=== PATIENT | male | born 1965 ===

== ENCOUNTER 2019-08-11 08:42 | Day surgery (SDC) | payer OTHER ==
[2019-08-11] VITALS (11 sets, daily range): BP systolic 117–167; BP diastolic 77–112
[~2019-08-11] VITALS: Ht 165.1 cm; Wt 104.3 kg
--- NOTE | 2019-08-11 08:58 | Short Stay Surgery H&P ---
History of Present Illness History of Present Illness Chief Complaint Epigastric pains and GERds HPI Sonny Flores is a 54 year old male who was admitted on for Abdominal Pain,Gerds Patient History PAST MEDICAL HISTORY: (1) Hypertension Review of Systems Cardiovascular: Reports: no symptoms Respiratory: Reports: no symptoms Skeletal: Reports: trauma Gastrointestinal: Reports: gastro esophageal reflux disease Genitourinary: Reports: no symptoms Neurologic: Reports: no symptoms Endocrine: Reports: no symptoms Hematologic: Reports: no symptoms Physical Exam Skin: normal HENT: normal Heart: normal Lungs: normal Abdomen: abnormal Extremities: normal Genitourinary: normal Plan Plan of Care Upper GI. endoscopy and biopy. Preop Interventions None. Summary of Findings See the reports Attestation Are the patient's medical conditions optimized for surgery? Attestation Response: yes Marquez Jarrett MD Aug 11, 2019 08:58
--- NOTE | 2019-08-11 08:59 | Pre-Procedure Note/Attestation ---
Pre-Procedure Note/Attestation Complete Prior to Procedure Planned Procedure: left Procedure Narrative: Examination of the upper GI. tract with obtaining biopsy. Indications for Procedure Pre-Operative Diagnosis: R/O Peptic Ulcer/gastritis/esophagitis Attestation I attest that I discussed the nature of the procedure; its benefits; risks and complications; and alternatives (and the risks and benefits of such alternatives ), prior to the procedure, with the patient (or the patient's legal credit and collections representative). I attest that, if there was a reasonable possibility of needing a blood transfusion, the patient (or the patient's legal credit and collections representative) was given the [place] Department [employer] standardized written summary, pursuant to the Domenico Donna Blood Safety Act ([place] Health and Safety Code # 1645, as amended). I attest that I re-evaluated the patient just prior to the surgery and that there has been no change in the patient's H&P, except as documented below: aMrquez Jarrett MD Aug 11, 2019 08:59
--- NOTE | 2019-08-11 09:01 | Discharge Instructions ---
Discharge Instructions Discharge Instructions Follow up with: See the doctor in office after 2 weeks. For Congestive Heart Failure Reminder Report to your physician any weight gain of 5 pounds or more in one week. Marquez Jarrett MD Aug 11, 2019 09:01
[2019-08-11] MEDS ORDERED: Lidocaine 2% Visc 15ml soln ORAL ONE (09:15)
[2019-08-11] MEDS ORDERED: Hurricaine 20% Spray ORO ONE (09:15)
[2019-08-11] MEDS ORDERED: OMEPRAZOLE40 M1 ORAL (09:28)
[2019-08-11] MEDS ORDERED: Propofol 200mg/20ml IV ONE (10:00)
[2019-08-11] MEDS ORDERED: Lidocaine 1% MPF 10mg/ml 5ml ONE (10:00)
--- NOTE | 2019-08-11 10:05 | Endoscopy Procedure Note ---
Endoscopy Procedure Note General Indication for Procedure: Abdominal pain/epigastric pain and GERDs Procedures Performed: EGD - Mild gastritis; biopsy obtained from antrum. Specimen: yes Pt Tolerated Procedure Well: Yes Estimated Blood Loss: none Anesthesia Anesthesiologist: Dr. Kisha Dolan Anesthesia: moderate sedation Medications Medication Given: see anesthesia record Inserted Devices Implant(s) used?: No Quality Quality of Bowel Preparation: Excellent GI Core Measures 50 yrs or older w/o bx or poly: Not Applicable 10yrs. F/U recommended: Not Applicable If not recommended, why?: Med reason:<3 yrs.: System Reason:<3 yrs.: Last colonoscopy >= to 3yrs: Marquez Doan MD Aug 11, 2019 10:05
--- NOTE | 2019-08-11 10:11 | Anethesia Preoperative Eval ---
Anesthesia Pre-op PMH/ROS General Date of Evaluation: Aug 11, 2019 Time of Evaluation: 09:40 Anesthesiologist: Kisha Dolan CRNA ASA Score: ASA 3 Mallampati Score Class I : Soft palate, uvula, fauces, pillars visible Class II: Soft palate, uvula, fauces visible Class III: Soft palate, base of uvula visible Class IV: Only hard plate visible Mallampati Classification: Class III Surgeon: Kolby Diagnosis: Gastritis Surgical Procedure: EGD with biopsies Anesthesia History: none Social History: smoking Family History: no anesthesia problems Allergies: Coded Allergies: No Known Allergies (Unverified , 08/11/19) Medications: see eMAR Patient NPO?: Yes NPO Date: Aug 11, 2019 NPO Time: 00:00 Past Medical History Cardiovascular: Reports: HTN - not on meds, poorly controlled, denies CP, SOB, [place] Pulmonary: Denies: asthma, COPD, ROMERO, other Gastrointestinal/Genitourinary: Reports: GERD; Denies: CRI, ESRD, other Neurologic/Psychiatric: Denies: dementia, CVA, depression/anxiety, TIA, other Endocrine: Denies: DM, hypothyroidism, steroids, other HEENT: Denies: cataract (L), cataract (R), glaucoma, [place]A (L), [place]A (R), other Hematology/Immune: Denies: anemia, DVT, bleeding disorder, other Musculoskeletal/Integumentary: Denies: OA, RA, DJD, DDD, edema, other Other: obesity - morbid obesity BMI 38 PMH Narrative: as noted above PSxH Narrative: see H & P Anesthesia Pre-op Phys. Exam Physician Exam Last Vital Signs Date Time Temp Pulse Resp B/P (MAP) Pulse Ox O2 Delivery O2 Flow Rate FiO2 08/11/19 09:35 Room Air 08/11/19 09:32 98.1 17 167/112 97 Constitutional: NAD Neurologic: other - alert & oriented Cardiovascular: RRR Respiratory: CTA Gastrointestinal: S/NT/ND Airway Exam Mallampati Score: Class III MO: full Neck: short thick neck, large tongue TMD: > 3 FB Teeth: intact Dentures: no upper, no lower Anesthesia Pre-op A/P Risk Assessment & Plan Assessment: ASA 3, ok to proceed Plan: MAC Status Change Before Surgery: No Pre-Antibiotics Given Within 1 Hr of Incision: No Koempel,Kisha [employer]PUTY [employer] INSPECTOR Aug 11, 2019 10:10
--- NOTE | 2019-08-11 10:22 | Immediate Post-Op Evaluation ---
Immediate Post-Op Evalulation Immediate Post-Op Evalulation Procedure: EGD with biopsies Date of Evaluation: Aug 11, 2019 Time of Evaluation: 10:20 IV Fluids: 0.9 NS 100 ml Blood Pressure Systolic: 146 Blood Pressure Diastolic: 110 Pulse Rate: 67 Respiratory Rate: 21 O2 Sat by Pulse Oximetry: 100 Temperature (Fahrenheit): 97.3 Pain Score (1-10): 0 Nausea: No Vomiting: No Complications none Patient Status: awake, patent Hydration Status: adequate Given Within 1 Hr of Incision: Kisha Galaviz CRNA Aug 11, 2019 10:22
--- NOTE | 2019-08-11 11:41 | 48 Hour Post Anesthesia Eval ---
Post Anesthesia Evaluation Procedure: EGD with biopsies Date of Evaluation: Aug 11, 2019 Time of Evaluation: 11:39 Blood Pressure Systolic: 137 0: 86 Pulse Rate: 69 Respiratory Rate: 17 Temperature (Fahrenheit): 97.4 O2 Sat by Pulse Oximetry: 96 Airway: patent Nausea: No Vomiting: No Pain Intensity: 0 Hydration Status: adequate Cardiopulmonary Status: stable Mental Status/LOC: patient returned to baseline Follow-up Care/Observations: per GI Post-Anesthesia Complications: none Follow-up care needed: N/A Kisha Dolan CRNA Aug 11, 2019 11:40
--- NOTE | 2019-08-11 12:15 | Pre-op HX & Phy Repo 2 SIG ---
DATE OF ADMISSION: 08/11/2019 HISTORY OF PRESENT ILLNESS: The applicant is a 54-year-old saa-Amilugy-spzfrthd gentleman, who is being seen prior to undergoing the procedure of upper GI endoscopy for which he has been scheduled to receive for evaluation of his gastrointestinal conditions that he has suffered subsequent to his work injury. The patient basically has been experiencing pain over the upper part of the abdomen, radiating towards his chest as he mentions and this has been associated with increasing gastroesophageal reflux consistent with as well. The intensity of pain is also moderate to sometime very severe as he mentions. He reports that he has been treated with nonsteroidal anti-inflammatory agents subsequent to his work injury and these symptoms have gradually occurred as he also does complain now that he has occasional nausea and some difficulty swallowing at times. He has been taking Tums for the control of his conditions. However, he has never been transcribed any medications such as PPIs or etc. The applicant also reports that he has occasional symptoms of gastroesophageal reflux and form of regurgitations that is quite cumbersome at times during the night. He denies having had any history of gastrointestinal conditions before or any evidence of gastritis secondary to Helicobacter in the past. 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 The nonsteroidal anti-inflammatory agents that he took for the prominence of injuries over his knees and the back area was mostly ibuprofen. Currently, he denies having any vomiting blood or passing black stools per rectum. There is no diarrhea or constipation currently. PAST MEDICAL HISTORY: He has had history of hypertension, otherwise he denies any other conditions such as pneumonia, pancreatitis, hepatitis, etc. PAST SURGICAL HISTORY: Nonsignificant. FAMILY HISTORY: The patient has two normal children. MEDICATIONS: None. HABITS: The applicant denies drinking alcohol or smoking cigarettes. REVIEW OF SYSTEMS: Basically history of present illness. He denies having any headaches or dizziness or visual problems. No history of urological conditions. He only complains of pain over his joints that he has suffered subsequent to his work injury. PHYSICAL EXAMINATION: GENERAL: At this time reveals alert, oriented, very pleasant gentleman, who does not speak Taiwanese, but answers the questions through the emc storage architect. VITAL SIGNS: Blood pressure 167/104, respiratory rate is 20 per minute, pulse rate is 54 per minute, oxygen saturation 97%, temperature 98.1. HEENT: Normocephalic. Pupils equal in size and reactive to light and accommodation. No visible jaundice. Buccal cavity, tongue midline, well hydrated. No ulcers. NECK: Supple. No JVD, thyromegaly, or adenopathy. CHEST: Clear to auscultation and percussion. No rales or rhonchi. HEART: S1, S2 normal. Regular rhythm. No gallops or murmur. ABDOMEN: Quite obese, but there are areas of tenderness over the upper part of the abdomen, but no hepatosplenomegaly. No palpable mass noted. Bowel sounds are present. EXTREMITIES: Within normal limits. No pretibial edema, cyanosis, or clubbing. NEUROLOGICAL: Grossly normal. PRELIMINARY PREOPERATIVE IMPRESSION: 1. Abdominal pain, epigastric pain of uncertain etiology, rule out gastroesophageal acid reflux, subsequent to the side effects of non NSAID medication used for the treatment of bodily injury. 2. Dysphagia possibly secondary to gastroesophageal reflux, rule out NSAID-induced esophagitis or esophageal spasm. 3. History of hypertension. 4. Obesity. 5. History of bodily injury work related. RECOMMENDATIONS: The applicant at this time seems to be quite stable to undergo the procedure of upper GI endoscopy for which he has been scheduled. He understands the risks and benefits and will sign the consent. Said Anthony Jarrett DR: MARTA JOB#: [id number] CC:
--- NOTE | 2019-08-11 13:01 | Operative Note - Dictated ---
DATE OF OPERATION: 08/11/2019 SURGEON: Marquez Jarrett M.D. PROCEDURE: Esophagogastroduodenoscopy with biopsy. PREOPERATIVE DIAGNOSIS: Abdominal pain, epigastric pain, rule out peptic ulcer disease induced by NSAID medication. POSTOPERATIVE DIAGNOSIS: Mild generalized gastritis, biopsy was taken from antral area. MEDICATION USED: Redd Dolan CRNA. INSTRUMENT: GIF Olympus upper GI video endoscope. DESCRIPTION OF PROCEDURE: The patient after arriving an endoscopy unit, was told about risks and benefits of the procedure, which he accepted and signed informed consent. He was then put on the left lateral decubitus position. After adequate IV sedation, the scope was gently passed through the cricopharyngeal area, was lodged into the upper esophagus and gradually advanced towards gastroesophageal junction. The entire length of the esophagus looked normal without any evidence of pathology. The scope was then passed into the GE junction, which was normal and subsequently scope was introduced into the stomach. Gastric cavity was distended with insufflation of air. At this time, gradually the areas of the fundus and the body and the antrum were examined, which revealed evidence of mild gastritis mostly significant in the antral area from which a biopsy was obtained. A retroflexion maneuver was also applied to examine the GE junction, which looked normal. At this time, the scope was passed through normal looking pylorus. First and second portion of duodenum were also found to be completely normal. Finally, scope was pulled out and procedure was terminated. The patient tolerated the procedure well and left the endoscopy room in a good condition. Marquez Jarrett M.D. DR: MARTA JOB#: [id number] CC:
== END 2019-08-11 11:30 | disposition home or self-care (01) ==
LOC: GAS 08:42
DX: R10.9 Unspecified abdominal pain (principal); R10.13 Epigastric pain; I10 Essential (primary) hypertension; R13.10 Dysphagia, unspecified; K21.9 Gastro-esophageal reflux disease without esophagitis; Z68.38 Body mass index [BMI] 38.0-38.9, adult; E66.01 Morbid (severe) obesity due to excess calories; K29.50 Unspecified chronic gastritis without bleeding
CPT/HCPCS: 43239; J0360; J2704; 94003; 94150; J7030